=== PATIENT | female | born 1990 | race Caucasian/White ===

== ENCOUNTER 2016-12-23 18:42 | Emergency (ER) | payer MEDICAID ==
[~2016-12-23] VITALS: Ht 160 cm; Wt 96.0 kg
[~2016-12-23 18:42] MED LIST: RIVA20TA PO
[2016-12-23] MEDS ORDERED: SODIUM CHLORIDE FLUSH 10ML SYR IVF ONE (20:00)
[2016-12-23] MEDS ORDERED: SODIUM CHLORIDE 0.9% 1,000ML IVBOLUS ONE (20:00)
[2016-12-23] MEDS ORDERED: ONDANSETRON 2MG/ML, 2ML IVPush ONE (20:00)
[2016-12-23] MEDS ORDERED: FAMOTIDINE 20 MG/2 ML IVP ONE (20:00)
[2016-12-23] MEDS ORDERED: HYDROmorphone 1 MG/ML, 1ML ONE ×2 (20:14→21:31)
[2016-12-23] MEDS ORDERED: ONDANSETRON 2MG/ML, 2ML ONE (20:14)
[2016-12-23] MEDS ORDERED: FAMOTIDINE 20 MG/2 ML ONE (20:15)
[2016-12-23 20:16] LABS: ASPARTATE AMINO TRANSFERASE 21 U/L (15-37); BLOOD UREA NITROGEN 12 mg/dL (7-18)
[2016-12-23] MEDS: HYDROmorphone 1 MG/ML, 1ML IVPush PRN ×2 (20:31→21:38)
[2016-12-23] MEDS ORDERED: VENL150C6 PO (21:47)
[2016-12-23 22:23] VITALS: BP 121/70
[2016-12-23 22:32] LABS: HCG UR OBC PASS
== END 2016-12-23 22:26 | disposition home or self-care (01) ==
LOC: ED 22:20
DX: K80.20 Calculus of gallbladder without cholecystitis without obstruction (principal)
CPT/HCPCS: 36415; 76700; 80053; 81001; 81025; 83690; 85025; 87086; 96361; 96374; 96375; 96376; 99285; J1170; J2405; J7030; S0028